=== PATIENT | female | born 1955 | race Caucasian/White ===

== ENCOUNTER → 2018-02-26 | Outpatient (CLI) | payer OTHER ==
[~2018-02-26] MED LIST: ADULT LOW DOSE81 MG PO; ALEVE220 MG PO; ASPIR 8181 MG PO; ASPIRIN325 PO; CELEBREX 200 M200 M1 PO; COLACE100 MG PO; GARCINIA CAMBO1 EACH PO; HYDROCODONE-AP1 EAC6 PO; IBUPROFEN 600600 M1 PO; METAMUCIL PAC1 UDPKT PO; NORCO 5-325 TA1 EACH PO; OXYCODONE HCL 55 MG PO; PREVACID 24HR15 MG PO; TUMS PO; UNICOMPLEX M TA1 TA1 PO
== END ==
LOC: M.CT 10:30
DX: G43.919 Migraine, unspecified, intractable, without status migrainosus (principal)